=== PATIENT | female | born 1945 | race American Indian/Alaskan Native ===

== ENCOUNTER 2017-08-02 07:55 | Day surgery (SDC) | payer MEDICARE ==
[2017-02-02 09:58] VITALS: BMI 30.7
[~2017-08-02 07:55] MED LIST: Bupivacaine HCl 0.25% PF (10 ml) Inj ONE; Iohexol 240 (50 ml) ONE
[2017-08-02 08:44] VITALS: RESP 18; TEMP 97.7; O2SAT 98
[2017-08-02] MEDS ORDERED: Propofol 10 mg/ml Inj (20 ML) ONE (09:55)
[2017-08-02] MEDS ORDERED: Lactated Ringer's 500 ML IV ONE (09:57)
[2017-08-02] MEDS ORDERED: MethylPREDNISolone Depo 40 mg/ml Inj ONE (10:06)
[2017-08-02 10:48] VITALS: BP 135/74; PULSE 81
--- NOTE | 2017-08-02 12:49 | RAD ---
PROCEDURE: Intraoperative Fluoroscopy. HISTORY: RADICULOPATHY FINDINGS: Fluoroscopic assistance was provided. 13.9 seconds fluoroscopy time utilized during this procedure. Radiation dose = 0.21521 mGy-cm
--- NOTE | 2017-08-03 08:35 | OP ---
PROCEDURE DATE: 08/02/17 PREOPERATIVE DIAGNOSES: 1. Lumbar radiculopathy. 2. Lumbar herniated disc. 3. Myalgias. POSTOPERATIVE DIAGNOSES: 1. Lumbar radiculopathy. 2. Lumbar herniated disc. 3. Myalgias. PROCEDURES: 1. Right and left side L4-L5, L5-S1 lumbar selective nerve root block. 2. Epidurogram. 3. Trigger point injections. X-RAY: [id number], Fluoroscopy of the spine. ANESTHESIA: MAC/local. SURGEON: Carolina Tolentino MD COMPLICATIONS: None. BLOOD LOSS: 2 mL. INDICATION: This patient has intractable back and leg pain that is unresponsive to conservative management. The pain is adversely affecting quality of life and activities of daily living. TECHNIQUE: After comprehensive informed consent was obtained, the risks of the procedure explained and questions answered. The patient understands fully the risks are, but not limited to possible bleeding, infection, headache, nervous tissue injury and worsening of their pain. The patient was placed prone on the operating table in a comfortable position. Confirmation of the procedure to be performed was obtained from the patient. The skin overlying the area to be injected was cleaned in a strict sterile fashion using chlorhexidine. Sterile drapes were placed around the area to be injected. Using the C-arm in the anteroposterior view, the levels to be injected were identified under fluoroscope. Then, the C-arm was obliqued in the coronal plane until the facet joint was delineated approximately 25 degrees. The area to be injected was superficially anesthetized with 3 mL of 1% lidocaine using a 27-gauge, 1.25-inch needle. Under fluoroscopic guidance, a 22-gauge, 3.5-inch short bevel needle was advanced and directed toward the tip of the pars. In the lateral view, ideal placement of the needle was obtained with the tip in the cephalodorsal corner of the neural foramen. In the anteroposterior plane and under continuous fluoroscopy, 1 mL of non-ionic, water-soluble contrast (Omnipaque 180) was injected to visualize the nerve root and make sure there was no vascular uptake. After negative aspiration for blood, 1 mL of preservative-free 0.5% Marcaine in 80 mg of Depo-Medrol was slowly injected at each level. The patient experienced no painful paresthesia during the injection. Epidurogram: The patient underwent transforaminal epidural steroid injection today. The epidural was observed at the level of L4-L5 under AP and lateral fluoroscopic guidance. A 2 mL of Omnipaque 200 contrast was injected that evenly spread from level L3 to S1 level with posterior-anterior dye spread bilaterally at level of L4-L5 and L5-S1. There appeared to be a moderate degree spondylosis at level of L4-L5 and moderate degree of spondylosis at the level of L5-S1 with disc protrusion at the level of L4-L5. The intervertebral disc height at the level of L4-L5 was slightly less than normal and intervertebral disc height at the level of L5-S1 was well maintained. The neural foramen appeared to be patent. Good epidural dye containment from L3-S1 with intervertebral disc protrusion at the level of L4-L5, maintaining less than normal intervertebral disc height at level L4-L5. Spondylosis noted at the level of L4 through S1. Copies of the images are on file. Trigger Point Injections: A 27-gauge needle was used to inject trigger point areas in paralumbar muscles, parathoracic muscles, and upper gluteal muscles. Needle was redirected to sciatic nerve branches. Total volume of 10 mL of 0.25% Marcaine. Intermittent aspiration was done throughout with no heme or CSF aspirated throughout. Patient tolerated procedure well. DISPOSITION: Patient was taken to the recovery room in stable condition. Patient was given instructions to follow up in two weeks and was discharged in stable condition. No events or complications. Carolina Tolentino MD
== END 2017-08-02 10:55 | disposition home or self-care (01) ==
LOC: C.SDS 07:55
PROVIDERS: ATTEND Anesthesiology Pain Medicine
DX: M47.817 Spondylosis without myelopathy or radiculopathy, lumbosacral region (principal); M54.16 Radiculopathy, lumbar region; M51.36 Other intervertebral disc degeneration, lumbar region
CPT/HCPCS: 20552; 62323; 82948; J1030; J2704; J7120; Q9966

== ENCOUNTER 2017-10-12 18:24 | Emergency (ER) | payer MEDICARE ==
[2017-10-12 18:24] VITALS: BMI 30.7
--- NOTE | 2017-10-12 21:06 | C.PDOC ---
History Of Present Illness 72 y/o F c PMHx recent R hip replacement p/w fall 1 week ago. Patient states she was moving quickly and bore weight on the wrong leg and fell. She struck her head. She states she didn't have pain initially but over the week, began having worsening pain in the head, neck, R hip, R knee, and R ankle. Denies vomiting, LOC, dyspnea. Time Seen by Provider: 10/12/17 20:11 Chief Complaint (Nursing): Hip Pain Past Medical History Vital Signs: Last Vital Signs Temp 98.7 F 10/12/17 19:44 Pulse 103 H 10/12/17 19:44 Resp 16 10/12/17 19:44 BP 153/87 H 10/12/17 19:44 Pulse Ox 97 10/12/17 22:55 - Medical History PMH: Anemia, Anxiety, Arthritis, Depression, Fractures (rt ankle), Gastritis, HTN, Hypercholesterolemia, Hypothyroidism, Peripheral Edema, Rheumatoid Arthritis, TIA Denies: HIV, Chronic Kidney Disease Surgical History: Endoscopy, Tonsillectomy - [facility] Procedures BONE GRAFT-TIBIA/FIBULA (05/21/15) COMPUTER ASSISTED PROCEDURE OF LOWER EXTREMITY (12/09/15) DEBRIDEMENT OF NAIL, NAIL BED OR NAIL FOLD (05/24/15) EXCISION OF SMALL INTESTINE, ENDO, DIAGN (01/23/16) GAIT TRAINING/AMBULAT TREATMENT USING ASSIST EQUIPMENT (12/09/15) GAIT TRAINING/FUNCTIONAL AMBULATION TREATMENT (07/22/16) GROOMING/PERSONAL HYGIENE TREATMENT (07/04/16) GROUP PSYCHOTHERAPY (07/22/16) HOME MANAGEMENT TREATMENT (07/22/16) INDIVIDUAL PSYCHOTHERAPY, INTERPERSONAL (07/22/16) INSPECTION OF LOWER INTESTINAL TRACT, ENDO (01/23/16) INTRODUCE REGIONAL ANESTH IN PERIPH NRV, PLEXI, PERC (12/09/15) LOC EXC LES TIBIA/FIBULA (05/21/15) OCCUPATIONAL THERAPY (05/24/15) OP RED-INT FIX TIB/FIBUL (01/13/15) OTH ARTHROTOMY-ANKLE (01/13/15) OTH ARTHROTOMY-KNEE (05/21/15) PACKED CELL TRANSFUSION (05/24/15) PHYSICAL THERAPY NEC (05/24/15) PSYCHOSOCIAL SKILLS TREATMENT (07/08/16) REPLACE OF L KNEE JT WITH SYNTH SUB, CEMENT, OPEN APPROACH (12/09/15) REPLACE R HIP JT W CERAMIC ON POLY, UNCEMENT, OPEN (07/04/16) THERAPEUTIC EXERCISE TREATMENT OF MUSCULOSK WHOLE (07/08/16) TOTAL KNEE REPLACEMENT (05/21/15) TRANSFER TRAINING TREATMENT (07/08/16) TRANSFUSE NONAUT RED BLOOD CELLS IN PERIPH ART, PERC (07/04/16) TRANSFUSE NONAUT RED BLOOD CELLS IN PERIPH VEIN, PERC (12/09/15) Family History: States: No Known Family Hx - Social History Hx Tobacco Use: No Hx Alcohol Use: No Hx Substance Use: No - Immunization History Hx Tetanus Toxoid Vaccination: No Hx Influenza Vaccination: Yes Hx Pneumococcal Vaccination: No Review Of Systems Except As Marked, All Systems Reviewed And Found Negative. Constitutional: Negative for: Fever Cardiovascular: Negative for: Chest Pain Physical Exam - Physical Exam Additional Physical Exam Comments: Constitutional: No acute distress. Head: Normocephalic. Atraumatic. Eyes: PERRL. EOMI. ENT: Moist mucous membranes. Neck: Supple. No midline tenderness. Cardiovascular: Regular rate. Radial pulses 2+ bilaterally. Chest: No tenderness. Respiratory: Clear to auscultation bilaterally. GI: Soft. Nontender. Back: No CVA tenderness. No midline tenderness. Musculoskeletal: Tenderness of R hip, knee, and ankle with FROM. No obvious deformity. Skin: No rash. Neurologic: Alert, no focal deficit. ED Course And Treatment O2 Sat by Pulse Oximetry: 97 Medical Decision Making Medical Decision Making: Toradol for pain. Will send for imaging to rule out further trauma. Head CT FINDINGS: Brain: Minimal atrophy. No intracranial hemorrhage. No mass. Calcifications of basal ganglia and cerebellum. Multiple scattered foci of decreased attenuation within periventricular/subcortical white matter. Probable chronic lacunar infarcts within basal ganglia. No edema. Ventricles: Unremarkable. No ventriculomegaly. Bones/joints: No acute fracture. Soft tissues: Unremarkable. Vasculature: Atherosclerotic disease of intracranial arteries. Sinuses: No acute sinusitis. Mastoid air cells: No mastoid effusion. Orbits: Unremarkable as visualized. Cervical spine CT IMPRESSION: 1. No fracture. 2. Incidental/non-acute findings are described above. XR knee IMPRESSION: 1. No fracture. XR Ankle IMPRESSION: 1. No fracture. XR Hip IMPRESSION: 1. No fracture. 2. If hip pain persists, consider MRI to exclude occult fracture/internal derangement. 3. Incidental/non-acute findings are described above. Will discharge home, f/u PMD, return to ED for worsening pain, numbness, weakness, or any other problem. Patient says medication worked well, will prescribe ibuprofen with pepcid. Disposition - Disposition Disposition: HOME/ ROUTINE Disposition Time: 22:59 Condition: STABLE Prescriptions: Famotidine [Pepcid] 1 tab PO BID #14 tab Ibuprofen [Motrin] 1 tab PO Q6 #30 tab Instructions: Fall Prevention for Older Adults (ED) Forms: [facility] (Macedonian) - Clinical Impression Clinical Impression: Hip pain
--- NOTE | 2017-10-12 22:29 | CT ---
EXAM: CT Head Without Intravenous Contrast CLINICAL HISTORY: 72 years old, female; Injury or trauma; Fall; Initial encounter TECHNIQUE: Axial computed tomography images of the head/brain without intravenous contrast. All CT scans at this facility use one or more dose reduction techniques, viz.: automated exposure control; ma/kV adjustment per patient size (including targeted exams where dose is matched to indication; i.e. head); or iterative reconstruction technique. Coronal and sagittal reformatted images were created and reviewed. COMPARISON: No relevant prior studies available. FINDINGS: Brain: Minimal atrophy. No intracranial hemorrhage. No mass. Calcifications of basal ganglia and cerebellum. Multiple scattered foci of decreased attenuation within periventricular/subcortical white matter. Probable chronic lacunar infarcts within basal ganglia. No edema. Ventricles: Unremarkable. No ventriculomegaly. Bones/joints: No acute fracture. Soft tissues: Unremarkable. Vasculature: Atherosclerotic disease of intracranial arteries. Sinuses: No acute sinusitis. Mastoid air cells: No mastoid effusion. Orbits: Unremarkable as visualized. IMPRESSION: 1. No intracranial hemorrhage. 2. Nonspecific white matter changes. 3. Incidental/non-acute findings are described above.
--- NOTE | 2017-10-12 22:34 | CT ---
EXAM: CT Cervical Spine Without Intravenous Contrast CLINICAL HISTORY: 72 years old, female; Pain; Neck pain; Additional info: Fall TECHNIQUE: Axial computed tomography images of the cervical spine without intravenous contrast. All CT scans at this facility use one or more dose reduction techniques, viz.: automated exposure control; ma/kV adjustment per patient size (including targeted exams where dose is matched to indication; i.e. head); or iterative reconstruction technique. Coronal and sagittal reformatted images were created and reviewed. COMPARISON: No relevant prior studies available. FINDINGS: Vertebrae: No acute fracture. Straightening of cervical spine. Discs/spinal canal/neural foramina: Severe degenerative disc disease within mid cervical spine. [id number] degenerative disc disease within lower cervical spine. Disc herniations within mid and lower cervical spine, suboptimally evaluated. Mild indentation thecal sac/cord mid cervical spine. Mild indentation thecal sac/cord lower cervical spine. Neuroforaminal narrowing with mid cervical spine. Soft tissues: Unremarkable. Vasculature: Atherosclerotic disease of visualized arteries. Thyroid: Subcentimeter cyst or nodule within the left lobe. Lung apices: Minimal apical scarring. IMPRESSION: 1. No fracture. 2. Incidental/non-acute findings are described above.
[2017-10-12 22:50] VITALS: TEMP 98.7
[2017-10-12 23:18] VITALS: BP 148/78; PULSE 82; RESP 19; O2SAT 98
--- NOTE | 2017-10-13 11:27 | RAD ---
PROCEDURE: Right Ankle Radiographs. HISTORY: fall, ankle pain COMPARISON: 10/16/2014 FINDINGS: BONES: No acute fractures. No evidence of orthopedic hardware failure. Plantar and Achilles Tendon insertion calcaneal spurs. JOINTS: Normal. No osteoarthritis. Ankle mortise maintained. Talar dome intact SOFT TISSUES: Normal. OTHER FINDINGS: None. IMPRESSION: No acute findings related to/accounting for the clinical presentation. No significant interval change compared to the prior examination(s).
--- NOTE | 2017-10-13 11:29 | RAD ---
PROCEDURE: Right Knee Radiographs. HISTORY: fall, knee pain COMPARISON: None. FINDINGS: BONES: Satisfactory position alignment of components right ASH without evidence of loosening. JOINTS: Normal. No osteoarthritis. JOINT EFFUSION: None. OTHER FINDINGS: None. IMPRESSION: No acute findings related to/accounting for the clinical presentation.
--- NOTE | 2017-10-13 11:32 | RAD ---
PROCEDURE: Posttraumatic right hip pain HISTORY: fall, hip pain COMPARISON: None TECHNIQUE: Standard protocol for this study/examination. FINDINGS: Satisfactory position alignment of components right bipolar hip prosthesis. No evidence of subluxation, dislocation or mechanical loosening. Intact pelvic ring. IMPRESSION: No acute findings related to/accounting for the clinical presentation.
== END 2017-10-12 23:17 | disposition home or self-care (01) ==
LOC: C.ER 18:24
DX: M25.551 Pain in right hip (principal); Z96.641 Presence of right artificial hip joint
CPT/HCPCS: 70450; 72125; 73502; 73562; 73610; 96372; 99283; J1885

== ENCOUNTER 2017-12-14 13:24 | Inpatient (IN) | payer MEDICARE ==
[2017-12-14 13:25] VITALS: BMI 32.4
--- NOTE | 2017-12-14 13:59 | C.PDOC ---
History Of Present Illness 72 yo female, hx of htn, hld, depression, presents with cp, shoulder pain, back pain, throat pain x 1 week. pt describes left sided chest tightness. no feever, no trauma. no cough, no n/v/d, no other complaints Time Seen by Provider: 12/14/17 13:27 Chief Complaint (Nursing): Chest Pain Past Medical History Reviewed: Historical Data, Nursing Documentation, Vital Signs Vital Signs: Last Vital Signs Temp 97.3 F L 12/15/17 15:32 Pulse 65 12/15/17 15:32 Resp 18 12/15/17 15:32 BP 110/69 12/15/17 15:32 Pulse Ox 100 12/15/17 15:58 - Medical History PMH: Anemia, Anxiety, Arthritis, Depression, Fractures (rt ankle), Gastritis, HTN, Hypercholesterolemia, Hypothyroidism, Peripheral Edema, Rheumatoid Arthritis, TIA Denies: HIV, Chronic Kidney Disease Surgical History: Endoscopy, Tonsillectomy - [facility] Procedures BONE GRAFT-TIBIA/FIBULA (05/21/15) COMPUTER ASSISTED PROCEDURE OF LOWER EXTREMITY (12/09/15) DEBRIDEMENT OF NAIL, NAIL BED OR NAIL FOLD (05/24/15) EXCISION OF SMALL INTESTINE, ENDO, DIAGN (01/23/16) GAIT TRAINING/AMBULAT TREATMENT USING ASSIST EQUIPMENT (12/09/15) GAIT TRAINING/FUNCTIONAL AMBULATION TREATMENT (07/22/16) GROOMING/PERSONAL HYGIENE TREATMENT (07/04/16) GROUP PSYCHOTHERAPY (07/22/16) HOME MANAGEMENT TREATMENT (07/22/16) INDIVIDUAL PSYCHOTHERAPY, INTERPERSONAL (07/22/16) INSPECTION OF LOWER INTESTINAL TRACT, ENDO (01/23/16) INTRODUCE REGIONAL ANESTH IN PERIPH NRV, PLEXI, PERC (12/09/15) LOC EXC LES TIBIA/FIBULA (05/21/15) OCCUPATIONAL THERAPY (05/24/15) OP RED-INT FIX TIB/FIBUL (01/13/15) OTH ARTHROTOMY-ANKLE (01/13/15) OTH ARTHROTOMY-KNEE (05/21/15) PACKED CELL TRANSFUSION (05/24/15) PHYSICAL THERAPY NEC (05/24/15) PSYCHOSOCIAL SKILLS TREATMENT (07/08/16) REPLACE OF L KNEE JT WITH SYNTH SUB, CEMENT, OPEN APPROACH (12/09/15) REPLACE R HIP JT W CERAMIC ON POLY, UNCEMENT, OPEN (07/04/16) THERAPEUTIC EXERCISE TREATMENT OF MUSCULOSK WHOLE (07/08/16) TOTAL KNEE REPLACEMENT (05/21/15) TRANSFER TRAINING TREATMENT (07/08/16) TRANSFUSE NONAUT RED BLOOD CELLS IN PERIPH ART, PERC (07/04/16) TRANSFUSE NONAUT RED BLOOD CELLS IN PERIPH VEIN, PERC (12/09/15) Family History: States: Unknown Family Hx - Social History Hx Tobacco Use: No Hx Alcohol Use: No Hx Substance Use: No - Immunization History Hx Tetanus Toxoid Vaccination: No Hx Influenza Vaccination: Yes Hx Pneumococcal Vaccination: No Review Of Systems ENT: Positive for: Throat Pain Cardiovascular: Positive for: Chest Pain Musculoskeletal: Positive for: Shoulder Pain Physical Exam - Physical Exam Appears: Well, No Acute Distress Skin: Normal Color, Warm, Dry Eye(s): bilateral: Normal Inspection, PERRL, EOMI Nose: Normal Throat: Erythema, No Exudate Neck: Normal Cardiovascular: Rhythm Regular Respiratory: Normal Breath Sounds Gastrointestinal/Abdominal: Normal Exam Back: Normal Inspection Extremity: Normal ROM ED Course And Treatment - Laboratory Results Result Diagrams: 12/14/17 14:11 12/14/17 14:11 O2 Sat by Pulse Oximetry: 100 Medical Decision Making Medical Decision Making: cp r/o acs- labs imaging pending case discussed with pmd dr gonsales, states pt with recent stress, but unsure results. specifically request pt to be admitted to dr jarrett service. Disposition - Disposition Disposition: HOSPITALIZED Disposition Time: 03:00 Condition: FAIR - Clinical Impression Clinical Impression: Chest pain Decision To Admit - Pt Status Changed To: Hospital Disposition Of: Observation - . Bed Request Type: Telemetry Admitting Physician: Xiomy Law Patient Diagnosis: Chest pain
[2017-12-14 14:16] LABS: BASO % 0.7 % (0.0-2.0); EOS % 0.4 % (0.0-4.0); HEMOGLOBIN 12.7 g/dL (11.0-16.0); LYMPH # 1.2 K/uL (1.0-4.3); LYMPH % 29.9 % (20.0-40.0); MEAN CELL VOLUME 90.8 fL (81.0-99.0); MEAN CORPUSCULAR HEMOGLOBIN 30.1 pg (27.0-31.0); MEAN CORPUSCULAR HGB CONC 33.2 g/dL (33.0-37.0); MEAN PLATELET VOLUME 8.9 fL (7.2-11.7); MONO # 0.3 K/uL (0.0-0.8); MONO % 6.5 % (0.0-10.0); NEUT # 2.4 K/uL (1.8-7.0); NEUT % 62.5 % (50.0-75.0); RBC 4.22 Mil/uL (3.80-5.20); RED CELL DISTRIBUTION WIDTH 13.3 % (11.5-14.5); WHITE BLOOD COUNT 3.9 K/uL (4.8-10.8)
[2017-12-14 14:26] LABS: PROTHROMBIN TIME 10.9 SECONDS (9.7-12.2)
[2017-12-14 14:38] LABS: ALB/GLOB RATIO 1.3 (1.0-2.1); ALBUMIN 4.4 g/dL (3.5-5.0); ALT/SGPT 16 U/L (9-52); AST/SGOT 22 U/L (14-36); BLOOD UREA NITROGEN 17 mg/dL (7-17); CALCIUM 9.3 mg/dl (8.6-10.4); GFR AFRICAN-AMERICAN 49; GFR NON-AFRICAN AMERICAN 40
--- NOTE | 2017-12-14 15:50 | RAD ---
HISTORY: chest pain COMPARISON: Chest x-ray 01/21/2016 TECHNIQUE: Chest PA and lateral FINDINGS: LUNGS: No focal consolidation is seen. PLEURA: No pleural effusion is identified. CARDIOVASCULAR: Heart size is within normal limits. OSSEOUS STRUCTURES: Degenerative changes noted of the spine. VISUALIZED UPPER ABDOMEN: Unremarkable. OTHER FINDINGS: None. IMPRESSION: No acute cardiopulmonary process seen.
--- NOTE | 2017-12-14 16:04 | RAD ---
PROCEDURE: Radiographs of the Left Shoulder HISTORY: pain COMPARISON: None FINDINGS: BONES: No fracture identified. JOINTS: Moderate to severe degenerative changes of the glenohumeral joint with severe joint space narrowing and inferior osteophyte of the humerus. Acromioclavicular joint is unremarkable. SOFT TISSUES: Unremarkable OTHER FINDINGS: Degenerative changes noted of the spine. Visualized lung kim are clear. IMPRESSION: No fracture or dislocation identified. Osteoarthritic changes left shoulder.
--- NOTE | 2017-12-14 18:07 | CP.PCM.HP ---
History of Present Illness - History of Present Illness History of Present Illness: 71-year-old female with past medical history of hypertension, hyperlipidemia, anxiety, depression presents with complaint of chest pain. Patient also admits being depressed and had recently seen her psychiatrist who wanted to adjust her medications. Patient denies any fever, chills, night sweats, cough, phlegm, abdominal pain, nausea vomiting, diarrhea, headaches, abdominal pain or any urinary symptoms. Present on Admission - Present on Admission Any Indicators Present on Admission: No History of DVT/PE: No History of Uncontrolled Diabetes: No Urinary Catheter: No Decubitus Ulcer Present: No Review of Systems - Review of Systems All systems: reviewed and no additional remarkable complaints except (As mentioned in HPI) Past Patient History - Infectious Disease Hx of Infectious Diseases: None - Tetanus Immunizations Tetanus Immunization: Unknown - Past Medical History & Family History Past Medical History?: Yes - Past Social History Smoking Status: Never Smoked - CARDIAC Hx Hypercholesterolemia: Yes Hx Hypertension: Yes Hx Peripheral Edema: Yes - PULMONARY Hx Respiratory Disorders: No - NEUROLOGICAL Hx Transient Ischemic Attacks (TIA): Yes - HEENT Hx HEENT Problems: Yes Hx Cataracts: Yes - RENAL Hx Chronic Kidney Disease: No - ENDOCRINE/METABOLIC Hx Hypothyroidism: Yes - HEMATOLOGICAL/ONCOLOGICAL Hx Anemia: Yes Hx Human Immunodeficiency Virus (HIV): No - INTEGUMENTARY Hx Dermatological Problems: No - MUSCULOSKELETAL/RHEUMATOLOGICAL Hx Arthritis: Yes Hx Fractures: Yes (rt ankle) Hx Rheumatoid Arthritis: Yes - GASTROINTESTINAL Hx Gastritis: Yes - GENITOURINARY/GYNECOLOGICAL Hx Genitourinary Disorders: No - PSYCHIATRIC Hx Anxiety: Yes Hx Depression: Yes Hx Substance Use: No - SURGICAL HISTORY Hx Tonsillectomy: Yes - ANESTHESIA Hx Anesthesia: Yes Hx Anesthesia Reactions: No Hx Malignant Hyperthermia: No Meds Home Medications: Home Medication List Medication Instructions Recorded Confirmed Type Aspirin [Aspirin Chewable] 81 mg PO DAILY #30 chew 12/20/17 Rx Lisinopril [Zestril] 40 mg PO DAILY #30 tab 12/20/17 Rx Mirtazapine [Remeron] 45 mg PO HS #30 tablet 12/20/17 Rx Ondansetron ODT [Zofran ODT] 4 mg PO Q8H PRN #21 odt 12/20/17 Rx Simvastatin 5 mg PO DAILY #30 tablet 12/20/17 Rx Venlafaxine [Effexor XR] 75 mg PO DAILY #30 cer 12/20/17 Rx Zolpidem [Ambien] 5 mg PO HS #30 tab 12/20/17 Rx amLODIPine [Norvasc] 10 mg PO DAILY #30 tab 12/20/17 Rx hydroCHLOROthiazide [Hydrodiuril] 25 mg PO DAILY #30 tab 12/20/17 Rx Allergies/Adverse Reactions: Allergies Allergy/AdvReac Type Severity Reaction Status Date / Time No Known Allergies Allergy Verified 12/14/17 13:47 Physical Exam - Head Exam Head Exam: NORMAL INSPECTION - Eye Exam Eye Exam: Normal appearance - ENT Exam ENT Exam: Mucous Membranes Moist - Respiratory Exam Respiratory Exam: Clear to Auscultation Bilateral - Cardiovascular Exam Cardiovascular Exam: REGULAR RHYTHM, +S1, +S2 - GI/Abdominal Exam GI & Abdominal Exam: Normal Bowel Sounds - Extremities Exam Extremities exam: Positive for: normal inspection - Neurological Exam Neurological exam: Alert, Oriented x3 - Psychiatric Exam Psychiatric exam: Depressed Results - Vital Signs Recent Vital Signs: Last Vital Signs Temp 98.7 F 12/14/17 17:14 Pulse 68 12/14/17 17:14 Resp 16 12/14/17 17:14 BP 132/79 12/14/17 17:14 Pulse Ox 100 12/14/17 17:14 - Labs Result Diagrams: 12/18/17 13:55 12/18/17 13:55 Labs: Laboratory Results - last 24 hr 12/14/17 12/14/17 12/14/17 14:11 14:11 14:11 WBC 3.9 L D RBC 4.22 Hgb 12.7 D Hct 38.3 MCV 90.8 D MCH 30.1 MCHC 33.2 RDW 13.3 Plt Count 266 MPV 8.9 Neut % (Auto) 62.5 Lymph % (Auto) 29.9 Prentiss % (Auto) 6.5 Eos % (Auto) 0.4 Baso % (Auto) 0.7 Neut # (Auto) 2.4 Lymph # (Auto) 1.2 Prentiss # (Auto) 0.3 Eos # (Auto) 0.0 Baso # (Auto) 0.0 PT 10.9 INR 1.0 APTT 32 Sodium 139 Potassium 4.2 Chloride 99 Carbon Dioxide 24 Anion Gap 19 BUN 17 Creatinine 1.3 H Est GFR ( Amer) 49 Est GFR (Non-Af Amer) 40 Random Glucose 135 H Calcium 9.3 Total Bilirubin 0.7 AST 22 ALT 16 Alkaline Phosphatase 88 Troponin I < 0.0120 Total Protein 7.8 Albumin 4.4 Globulin 3.4 Albumin/Globulin Ratio 1.3 Assessment & Plan - Assessment and Plan (Free Text) Assessment: Chest pain Major depression Anxiety Hypertension Hyperlipidemia Cardiac enzymes Cardiology consult Serial EKGs BP control Psych consult for major depression DVT/GI prophylaxis for DVT/GI prophylaxis
[2017-12-15 01:40] LABS: CK-MB 0.29 ng/mL (0.0-3.38)
[2017-12-15] MEDS ORDERED: Home Med 1 UNIT (Simvastatin [Simvastatin] 5 MG) PO SCH (10:00)
[2017-12-15] MEDS ORDERED: Venlafaxine 75 mg ER Cap PO SCH (10:00)
--- NOTE | 2017-12-15 10:12 | CARD ---
APPROVED REPORT EKG Measurement Heart [id number] CT [id number] <Conclusion> Normal sinus rhythm Normal ECG
--- NOTE | 2017-12-15 11:27 | CP.PCM.CON ---
History of Present Illness - History of Present Illness History of Present Illness: PGY2 Cardiology Consult Note for Dr. Mckeon This 72 yo female with PMHx of HTN, HLD, GERD, OA, Depression - presents c/o Chest pain, shoulder pain, back pain, throat pain x 1 week. Pt describes left sided chest tightness during admission. Denied fever, trauma, cough, n/v/d, or any additional acute complaints. COLIN panel was negative x3 and EKG showed NSR. Chest Xray was also negative. Case was discussed with PMD who stated pt had recent stress test, but results unkown. Cardiology was consulted 2/2 c/o chest pain and hx of HTN + HLD. Patient seen and examined at bedside this AM. She is resting comfortably. Denies chest pain, palpitations, or SOB. She does c/o L shoulder discomfort with movement. Denies any additional acute complaints. PMD: Dr Carvajal PMHx: HTN, HLD, GERD, OA, Depression PSHx: L TKR (12/12/15), R TKR(04/2015), Right Ankle Surgery(01/2015), INESSA - Hysterectomy, Tonsillectomy FHx: Mother - Alzheimer's Disease ; Father - Unknown but at 82 yo SHx: denies tobacco, etoh, ivdu NKDA Meds: See EMR Review of Systems: -Gen: No fever, No chills, No headache, No lethargy, No weakness. -HEENT: No dizziness, No change in vision, No change in hearing, No sore throat , No dysphagia, No nasal congestion, No mucous. -Cardio: No chest pain, No palpitations, No lower extremity edema, No orthopnea. -Resp: No cough, No dyspnea, No hemoptysis, No wheezing, No pain on inspiration. -GI: No abdominal pain, No nausea/vomiting, No diarrhea/constipation, No hematochezia, No hematemesis. -: No dysuria, No urinary freq, No incontinence, No hematuria, No change in urinary stream. -MSK: No back pain, No muscle weakness, +L shoulder pain with mild radiation to L upper chest. -Skin: No itching, No rash, No lesions. -Neuro: No confusion, No numbness, No tingling, No focal weakness, No syncope. -Psych: No anxiety, +depression, No H/I, No S/I, No hallucinations. Past Patient History - Infectious Disease Hx of Infectious Diseases: None - Tetanus Immunizations Tetanus Immunization: Unknown - Past Medical History & Family History Past Medical History?: Yes - Past Social History Smoking Status: Never Smoked - CARDIAC Hx Hypercholesterolemia: Yes Hx Hypertension: Yes Hx Peripheral Edema: Yes - PULMONARY Hx Respiratory Disorders: No - NEUROLOGICAL Hx Transient Ischemic Attacks (TIA): Yes - HEENT Hx HEENT Problems: Yes Hx Cataracts: Yes - RENAL Hx Chronic Kidney Disease: No - ENDOCRINE/METABOLIC Hx Hypothyroidism: Yes - HEMATOLOGICAL/ONCOLOGICAL Hx Anemia: Yes Hx Human Immunodeficiency Virus (HIV): No - INTEGUMENTARY Hx Dermatological Problems: No - MUSCULOSKELETAL/RHEUMATOLOGICAL Hx Arthritis: Yes Hx Fractures: Yes (rt ankle) Hx Rheumatoid Arthritis: Yes - GASTROINTESTINAL Hx Gastritis: Yes - GENITOURINARY/GYNECOLOGICAL Hx Genitourinary Disorders: No - PSYCHIATRIC Hx Anxiety: Yes Hx Depression: Yes Hx Substance Use: No - SURGICAL HISTORY Hx Tonsillectomy: Yes - ANESTHESIA Hx Anesthesia: Yes Hx Anesthesia Reactions: No Hx Malignant Hyperthermia: No Meds Allergies/Adverse Reactions: Allergies Allergy/AdvReac Type Severity Reaction Status Date / Time No Known Allergies Allergy Verified 12/14/17 13:47 - Medications Medications: Current Medications Amlodipine Besylate (Norvasc) 10 mg PO DAILY [facility] Last Admin: 12/15/17 09:37 Dose: Not Given Aspirin (Aspirin Chewable) 81 mg PO DAILY [facility] Last Admin: 12/15/17 09:35 Dose: 81 mg Heparin Sodium (Porcine) (Heparin) 5,000 units SC Q12 [facility] Last Admin: 12/15/17 09:37 Dose: 5,000 units Hydrochlorothiazide (Hydrodiuril) 25 mg PO DAILY [facility] Last Admin: 12/15/17 09:36 Dose: 25 mg Lisinopril (Zestril) 40 mg PO DAILY [facility] Last Admin: 12/15/17 09:37 Dose: Not Given Lorazepam (Ativan) 1 mg PO Q6H PRN PRN Reason: Anxiety Ondansetron HCl (Zofran Odt) 4 mg PO Q8H PRN PRN Reason: Nausea/Vomiting Last Admin: 12/15/17 09:35 Dose: 4 mg Pneumococcal Polyvalent Vaccine (Pneumovax 23 Vaccine) 0.5 ml IM .ONCE ONE Stop: 12/16/17 10:01 Rosuvastatin Calcium (Crestor) 10 mg PO [facility] Last Admin: 12/14/17 22:37 Dose: 10 mg Venlafaxine HCl (Effexor) 75 mg PO DAILY [facility] Last Admin: 12/15/17 09:36 Dose: 75 mg Zolpidem Tartrate (Ambien) 5 mg PO [facility] Last Admin: 12/14/17 22:37 Dose: 5 mg Physical Exam - Constitutional Appears: Non-toxic, No Acute Distress - Head Exam Head Exam: ATRAUMATIC, NORMAL INSPECTION - Eye Exam Eye Exam: EOMI, Normal appearance - ENT Exam ENT Exam: Mucous Membranes Moist Additional comments: throat erythematous - Neck Exam Neck exam: Positive for: Full Rom - Respiratory Exam Respiratory Exam: Clear to Auscultation Bilateral, NORMAL BREATHING PATTERN. absent: Wheezes, Respiratory Distress - Cardiovascular Exam Cardiovascular Exam: REGULAR RHYTHM, +S1, +S2. absent: JVD, Rubs, Systolic Murmur - GI/Abdominal Exam GI & Abdominal Exam: Normal Bowel Sounds, Soft. absent: Tenderness - Back Exam Back exam: NORMAL INSPECTION. absent: CVA tenderness (L), CVA tenderness (R) - Neurological Exam Neurological exam: Alert, CN II-XII Intact - Psychiatric Exam Psychiatric exam: Depressed, Normal Affect - Skin Skin Exam: Dry, Intact, Normal Color, Warm Results - Vital Signs Recent Vital Signs: Last Vital Signs Temp 97.4 F L 12/15/17 07:30 Pulse 74 12/15/17 07:30 Resp 20 12/15/17 07:30 BP 100/66 12/15/17 07:30 Pulse Ox 97 12/15/17 07:30 - Labs Result Diagrams: 12/14/17 14:11 12/14/17 14:11 Labs: Laboratory Results - last 24 hr 12/14/17 12/14/17 12/14/17 14:11 14:11 14:11 WBC 3.9 L D RBC 4.22 Hgb 12.7 D Hct 38.3 MCV 90.8 D MCH 30.1 MCHC 33.2 RDW 13.3 Plt Count 266 MPV 8.9 Neut % (Auto) 62.5 Lymph % (Auto) 29.9 [place] % (Auto) 6.5 Eos % (Auto) 0.4 Baso % (Auto) 0.7 Neut # (Auto) 2.4 Lymph # (Auto) 1.2 [place] # (Auto) 0.3 Eos # (Auto) 0.0 Baso # (Auto) 0.0 PT 10.9 INR 1.0 APTT 32 Sodium 139 Potassium 4.2 Chloride 99 Carbon Dioxide 24 Anion Gap 19 BUN 17 Creatinine 1.3 H Est GFR ( Amer) 49 Est GFR (Non-Af Amer) 40 Random Glucose 135 H Calcium 9.3 Total Bilirubin 0.7 AST 22 ALT 16 Alkaline Phosphatase 88 Total Creatine Kinase CK-MB (Mass) Troponin I < 0.0120 Total Protein 7.8 Albumin 4.4 Globulin 3.4 Albumin/Globulin Ratio 1.3 12/14/17 12/15/17 19:43 01:00 WBC RBC Hgb Hct MCV MCH MCHC RDW Plt Count MPV Neut % (Auto) Lymph % (Auto) [place] % (Auto) Eos % (Auto) Baso % (Auto) Neut # (Auto) Lymph # (Auto) [place] # (Auto) Eos # (Auto) Baso # (Auto) PT INR APTT Sodium Potassium Chloride Carbon Dioxide Anion Gap BUN Creatinine Est GFR ( Amer) Est GFR (Non-Af Amer) Random Glucose Calcium Total Bilirubin AST ALT Alkaline Phosphatase Total Creatine Kinase 47 CK-MB (Mass) 0.29 Troponin I < 0.0120 < 0.0120 Total Protein Albumin Globulin Albumin/Globulin Ratio Assessment & Plan - Assessment and Plan (Free Text) Assessment: Chest Pain 12/15: Pt denies chest pain today, will continue to monitor. -COLIN negative x3 -EKG with NSR -CXR negative Hypertension -BP 100/66, HR 74. -Continue Norvasc, ASA 81, Lisinopril HLD -Continue crestor Case discussed with Dr. Mckeon, Jose Sheth, PGY2 - Date & Time Date: 12/15/17 Time: 09:00
--- NOTE | 2017-12-15 17:28 | CP.PCM.CON ---
History of Present Illness - History of Present Illness History of Present Illness: The pt is a 72 year old woman with HTN, HLD, GERD, OA, Depression , who has had chest pain for about ytwo weeks. Yesterday was especially bad, lasted all day and night pt could not lie on her left sided or turn. Pt also had pain radiating to the shoulder and throat. pt had a stress test two weeks ago, and was awaiting results. No known CAD. Review of Systems - Review of Systems All systems: reviewed and no additional remarkable complaints except (arthritis , and as above.) Past Patient History - Infectious Disease Hx of Infectious Diseases: None - Tetanus Immunizations Tetanus Immunization: Unknown - Past Medical History & Family History Past Medical History?: Yes - Past Social History Smoking Status: Never Smoked - CARDIAC Hx Hypercholesterolemia: Yes Hx Hypertension: Yes Hx Peripheral Edema: Yes - PULMONARY Hx Respiratory Disorders: No - NEUROLOGICAL Hx Transient Ischemic Attacks (TIA): Yes - HEENT Hx HEENT Problems: Yes Hx Cataracts: Yes - RENAL Hx Chronic Kidney Disease: No - ENDOCRINE/METABOLIC Hx Hypothyroidism: Yes - HEMATOLOGICAL/ONCOLOGICAL Hx Anemia: Yes Hx Human Immunodeficiency Virus (HIV): No - INTEGUMENTARY Hx Dermatological Problems: No - MUSCULOSKELETAL/RHEUMATOLOGICAL Hx Arthritis: Yes Hx Fractures: Yes (rt ankle) Hx Rheumatoid Arthritis: Yes - GASTROINTESTINAL Hx Gastritis: Yes - GENITOURINARY/GYNECOLOGICAL Hx Genitourinary Disorders: No - PSYCHIATRIC Hx Anxiety: Yes Hx Depression: Yes Hx Substance Use: No - SURGICAL HISTORY Hx Tonsillectomy: Yes - ANESTHESIA Hx Anesthesia: Yes Hx Anesthesia Reactions: No Hx Malignant Hyperthermia: No Meds Allergies/Adverse Reactions: Allergies Allergy/AdvReac Type Severity Reaction Status Date / Time No Known Allergies Allergy Verified 12/14/17 13:47 - Medications Medications: Current Medications Amlodipine Besylate (Norvasc) 10 mg PO DAILY [facility] Last Admin: 12/15/17 09:37 Dose: Not Given Aspirin (Aspirin Chewable) 81 mg PO DAILY [facility] Last Admin: 12/15/17 09:35 Dose: 81 mg Heparin Sodium (Porcine) (Heparin) 5,000 units SC Q12 [facility] Last Admin: 12/15/17 09:37 Dose: 5,000 units Hydrochlorothiazide (Hydrodiuril) 25 mg PO DAILY [facility] Last Admin: 12/15/17 09:36 Dose: 25 mg Lisinopril (Zestril) 40 mg PO DAILY [facility] Last Admin: 12/15/17 09:37 Dose: Not Given Lorazepam (Ativan) 1 mg IVP Q6H PRN PRN Reason: Anxiety Ondansetron HCl (Zofran Odt) 4 mg PO Q8H PRN PRN Reason: Nausea/Vomiting Last Admin: 12/15/17 09:35 Dose: 4 mg Pneumococcal Polyvalent Vaccine (Pneumovax 23 Vaccine) 0.5 ml IM .ONCE ONE Stop: 12/16/17 10:01 Rosuvastatin Calcium (Crestor) 10 mg PO [facility] Last Admin: 12/14/17 22:37 Dose: 10 mg Venlafaxine HCl (Effexor) 75 mg PO DAILY [facility] Last Admin: 12/15/17 09:36 Dose: 75 mg Zolpidem Tartrate (Ambien) 5 mg PO [facility] Last Admin: 12/14/17 22:37 Dose: 5 mg Physical Exam - Constitutional Appears: Well - Head Exam Head Exam: ATRAUMATIC - Eye Exam Eye Exam: EOMI, PERRL - ENT Exam ENT Exam: Mucous Membranes Moist - Neck Exam Neck exam: Positive for: Full Rom - Respiratory Exam Respiratory Exam: Clear to Auscultation Bilateral - Cardiovascular Exam Cardiovascular Exam: REGULAR RHYTHM - GI/Abdominal Exam GI & Abdominal Exam: Normal Bowel Sounds - Extremities Exam Extremities exam: Positive for: normal inspection - Back Exam Back exam: NORMAL INSPECTION - Psychiatric Exam Psychiatric exam: Normal Mood Results - Vital Signs Recent Vital Signs: Last Vital Signs Temp 97.3 F L 12/15/17 15:32 Pulse 65 12/15/17 15:32 Resp 18 12/15/17 15:32 BP 110/69 12/15/17 15:32 Pulse Ox 100 12/15/17 16:55 - Labs Result Diagrams: 12/14/17 14:11 12/14/17 14:11 Labs: Laboratory Results - last 24 hr 12/14/17 12/15/17 19:43 01:00 Total Creatine Kinase 47 CK-MB (Mass) 0.29 Troponin I < 0.0120 < 0.0120 - EKG Data EKG Interpreted by: Myself EKG shows normal: Sinus rhythm (normal) Assessment & Plan - Assessment and Plan (Free Text) Assessment: 1. The patient has reproducible, non anginal positional chest pain. TNI are normal and ecg normal. I will get the results of her most recent stress test, but based on her current presentation, he near term risk of an acute coronary event is low.
--- NOTE | 2017-12-15 18:40 | CP.PCM.PN ---
Subjective - Date & Time of Evaluation Date of Evaluation: 12/15/17 Time of Evaluation: 18:40 - Subjective Subjective: Patient seen and examined Cardiac enzymes 3 negative Cardiology consult appreciated Objective - Vital Signs/Intake and Output Vital Signs (last 24 hours): Temp Pulse Resp BP Pulse Ox 97.3 F L 65 18 110/69 100 12/15/17 15:32 12/15/17 15:32 12/15/17 15:32 12/15/17 15:32 12/15/17 16:55 - Medications Medications: Current Medications Amlodipine Besylate (Norvasc) 10 mg PO DAILY [facility] Last Admin: 12/15/17 09:37 Dose: Not Given Aspirin (Aspirin Chewable) 81 mg PO DAILY [facility] Last Admin: 12/15/17 09:35 Dose: 81 mg Heparin Sodium (Porcine) (Heparin) 5,000 units SC Q12 [facility] Last Admin: 12/15/17 09:37 Dose: 5,000 units Hydrochlorothiazide (Hydrodiuril) 25 mg PO DAILY [facility] Last Admin: 12/15/17 09:36 Dose: 25 mg Lisinopril (Zestril) 40 mg PO DAILY [facility] Last Admin: 12/15/17 09:37 Dose: Not Given Lorazepam (Ativan) 1 mg IVP Q6H PRN PRN Reason: Anxiety Ondansetron HCl (Zofran Odt) 4 mg PO Q8H PRN PRN Reason: Nausea/Vomiting Last Admin: 12/15/17 09:35 Dose: 4 mg Pneumococcal Polyvalent Vaccine (Pneumovax 23 Vaccine) 0.5 ml IM .ONCE ONE Stop: 12/16/17 10:01 Rosuvastatin Calcium (Crestor) 10 mg PO HS [facility] Last Admin: 12/14/17 22:37 Dose: 10 mg Venlafaxine HCl (Effexor) 75 mg PO DAILY [facility] Last Admin: 12/15/17 09:36 Dose: 75 mg Zolpidem Tartrate (Ambien) 5 mg PO HS [facility] Last Admin: 12/14/17 22:37 Dose: 5 mg - Labs Labs: 12/14/17 14:11 12/14/17 14:11 PT 10.9 SECONDS (9.7-12.2) 12/14/17 14:11 INR 1.0 12/14/17 14:11 APTT 32 SECONDS (21-34) 12/14/17 14:11 - Head Exam Head Exam: NORMAL INSPECTION - Eye Exam Eye Exam: Normal appearance - ENT Exam ENT Exam: Mucous Membranes Moist - Respiratory Exam Respiratory Exam: Clear to Ausculation Bilateral - GI/Abdominal Exam GI & Abdominal Exam: Soft, Normal Bowel Sounds - Extremities Exam Extremities Exam: Normal Inspection - Neurological Exam Neurological Exam: Alert, Awake Assessment and Plan - Assessment and Plan (Free Text) Assessment: Chest pain Major depression Anxiety Hypertension Hyperlipidemia Psych consult appreciated Psych meds being adjusted Hydrochlorothiazide Norvasc Patient denies any suicidal ideations DVT/GI prophylaxis
--- NOTE | 2017-12-15 22:40 | CON ---
DATE: PSYCHIATRIC CONSULTATION CHIEF COMPLAINT AND REASON FOR CONSULTATION: The patient was referred by Dr. Law for evaluation and comanagement of depression and anxiety. The patient is well known to me because the patient seen in my office for depression and anxiety. HISTORY OF PRESENT ILLNESS: This is case of a 72-year-old female with a long history of depression and anxiety. The patient came to the emergency room complaining of chest pain, shoulder pain, throat pain, and difficulty taking care herself. The patient was referred for comanagement that the patient has been complaining of increasing depression and anxiety. The patient has long history of depression and anxiety related to her issues with her , Moi, who was also a patient of [employer], who has advanced Alzheimer's. The patient has been the caregiver of her for many years but the patient is having difficulty keeping her at home due to advanced Alzheimer's. Her has been exhibiting behavior problems at home, unable to follow direction, not doing his ADLs. Plan for the patient was to put her in a care home but the patient is still awaiting for completion of her 's Medicaid; so the patient can be placed in a care home. The patient also had issue with her grandson who is also medically ill. She reports that she stopped taking her medicines. Review of her medications: The patient used to take Effexor and also Klonopin but has not taken them in 2 months and also was taking Ambien only to help her sleep, this was prescribed by her primary care doctor. The patient used to be on antidepressant in the past, she was taking Effexor, and she was taking Remeron and Klonopin but has not taking them. She has history of begin admitted at the [facility] at [place] a few months ago. Today, the patient is complaining of anxiety. She stated she feels like she is dying. She was given Ativan 1 mg and feels much relieved. The patient is to resume taking her medications for her depression and anxiety which she is willing to do so. She is still worried about her who is at home and needs 24-hour care. PAST PSYCHIATRIC HISTORY: A long history of depression and anxiety who underwent previous psych admission in [place]. The patient has no prior suicidal history, has been on antidepressants in the past and anxiolytics. She has history of chronic insomnia. MEDICAL HISTORY: As stated history of fractured right ankle, gastritis, hypertension, hypercholesterolemia, thyroid problems, history of rheumatoid arthritis, TIA. The patient is followed by Dr. Polanco. DRUG AND ALCOHOL HISTORY: Denies any. ALLERGIES: THE PATIENT HAS NO KNOWN ALLERGIES. 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 She lives with her , Moi, they have been for over 40 years but the patient's has advanced Alzheimer's. The patient is the primary caregiver of her . MEDICATIONS: List of current medications include Ambien 5 mg at bedtime, aspirin. The patient was earlier given Klonopin 1 mg every 12 hours, Crestor, Effexor 75 mg daily, HydroDIURIL, Norvasc, Zestril, Zofran. VITAL SIGNS: Temperature is 97.4, pulse rate 74, blood pressure 100/66, respirations 20, oxygen saturation is 97%. REVIEW OF HER LABS: WBC is 3.9, creatinine is 1.3, random glucose is 135, sodium is 139. REVIEW OF SYSTEMS: GENERAL: The patient is alert and oriented x3 but feels weak and depressed, seen in her room. She was asking something for her anxiety. The patient is having panic attack, feeling overwhelmed. SKIN: No diaphoresis. HEENT: No headache. No dizziness. NECK: Supple. RESPIRATORY: No dyspnea. CARDIOVASCULAR: No chest pain. GASTROINTESTINAL: Feeling nauseous, has very poor appetite. EXTREMITIES: Unsteady gait. MUSCULOSKELETAL: Feels week. GENITOURINARY: No dysuria. NEUROLOGIC: Alert and oriented x3 but clinically depressed. She states she has not been sleeping, has not been eating, and feels like rolling up all the time. MENTAL STATUS EXAMINATION: An elderly female, well known to me, oriented x3, somatic, anxious, clinically depressed. Affect is reactive. Speech is spontaneous. Thought process, coherent. Thought content, the patient is having some anxiety attacks feeling overwhelmed about her role of a caregiver of her , Moi, who has advanced Alzheimer's. The patient wants to put her in a care home but the patient is still awaiting with the completion of the Medicaid of her . Stated no psychosis, no suicidal or homicidal ideation. Attention and memory seems to be fair. Insight and judgment are limited. Impulse control is fair at this time. IMPRESSION: History of recurrent depression, anxiety, as well as history of chest pain. PLAN AND RECOMMENDATION: The patient is seen, meds reviewed. The patient is still nauseous and vomiting. We will discontinue the Klonopin. We will continue the Effexor 75 mg daily. The patient has not taken this in 2 months, she stopped her medication and then may have Ativan 1 mg IV x1 now and then we will given Ativan IV one every 6 hours p.r.n. We will continue the Ambien 5 mg p.o. at bedtime for anxiety. The patient can go for subacute rehab; right now, the patient is reluctant to go back to [facility]. The patient is still medically sick at this time but not complaining of chest pain as stated. She had an EKG done that showed normal sinus rhythm and also normal EKG. Her chest pain mostly is related to anxiety and depression. Skinny Lozano MD MTDRody
[2017-12-16] MEDS ORDERED: Pneumococcal 23-Valent Vaccine IM ONE (10:00)
--- NOTE | 2017-12-16 21:01 | PN ---
DATE: SUBJECTIVE: The patient is seen. The patient is still feeling weak and has GI symptoms, but get relieved by the Ativan p.r.n. She also started taking Effexor as well as Ambien. The patient is still sleepy and her appetite is variable. The patient is seen with her daughter. The patient reports that she applied Medicaid for her last June and waiting for the result. The patient is hoping that her will be placed in the intermediate. 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 No loss of job. Currently on Ambien, as well as Effexor and Ativan p.r.n. PHYSICAL EXAMINATION VITAL SIGNS: Temperature 98, heart rate 87, blood pressure 122/73, respirations 20, oxygen saturations 96%. REVIEW OF SYSTEMS: GENERAL: The patient is alert and oriented x3, seen in her room, still feeling weak. The patient is less anxious, but seems depressed. Seen with her daughter. SKIN: No diaphoresis. HEENT: No headache or dizziness. NECK: Supple. RESPIRATORY: No dyspnea. CARDIOVASCULAR: No chest pain. GASTROINTESTINAL: The patient still is feeling nauseous, but no vomiting. She states she has no appetite. EXTREMITIES: The patient is moving extremities. MUSCULOSKELETAL: Feels weak. NEUROLOGIC: Alert and oriented x3. GENITOURINARY: No dysuria. MENTAL STATUS EXAMINATION: Elderly female who looks stated age. She is about 5 feet 5 inches, weighs 195 pounds. The patient is obese. Mood is depressed, anxious, somatic. Thought process, coherent. Thought content, no psychosis. The patient is preoccupied about her , Moi. The patient is hoping that the patient can be placed in the intermediate once her 's Medicaid will be approved. The patient states she will contact Clotilde who is helping her get her 's Medicaid. Attention and memory seems to be fair. Insight and judgement fair. Impulse control is fair. As stated, the patient has no psychosis. No suicidal or homicidal ideation. IMPRESSION: History of recurrent depression, anxiety, history of chest pain, gastroesophageal reflux disease, osteoarthrosis, history of falls, history of delirium, history of hyperlipidemia, history of diabetes. PLAN AND RECOMMENDATIONS: The patient is seen, meds reviewed. Continue present psych meds. Continue treatment plan as outlined. The patient may benefit from subacute rehab as she is feeing very weak. The patient's will need to be placed in a intermediate once the patient's has Medicaid. Skinny Lozano MD JOSEPH
--- NOTE | 2017-12-17 15:10 | CP.PCM.PN ---
Subjective - Date & Time of Evaluation Date of Evaluation: 12/16/17 Time of Evaluation: 17:04 - Subjective Subjective: Patient seen and examined No events overnight Denies suicidal ideation Objective - Vital Signs/Intake and Output Vital Signs (last 24 hours): Temp Pulse Resp BP Pulse Ox 97.7 F 66 20 116/72 98 12/17/17 07:10 12/17/17 07:45 12/17/17 07:10 12/17/17 07:10 12/17/17 07:10 Intake and Output: 12/17/17 12/17/17 06:59 18:59 Intake Total 325 Balance 325 - Medications Medications: Current Medications Amlodipine Besylate (Norvasc) 10 mg PO DAILY [facility] Last Admin: 12/17/17 09:43 Dose: 10 mg Aspirin (Aspirin Chewable) 81 mg PO DAILY [facility] Last Admin: 12/17/17 09:42 Dose: 81 mg Heparin Sodium (Porcine) (Heparin) 5,000 units SC Q12 [facility] Last Admin: 12/17/17 09:42 Dose: 5,000 units Hydrochlorothiazide (Hydrodiuril) 25 mg PO DAILY [facility] Last Admin: 12/17/17 09:42 Dose: 25 mg Lisinopril (Zestril) 40 mg PO DAILY [facility] Last Admin: 12/17/17 09:43 Dose: 40 mg Lorazepam (Ativan) 1 mg IVP Q6H PRN PRN Reason: Anxiety Last Admin: 12/17/17 09:46 Dose: 1 mg Mirtazapine (Remeron) 30 mg PO HS [facility] Mirtazapine (Remeron) 15 mg PO HS [facility] Ondansetron HCl (Zofran Odt) 4 mg PO Q8H PRN PRN Reason: Nausea/Vomiting Last Admin: 12/15/17 09:35 Dose: 4 mg Rosuvastatin Calcium (Crestor) 10 mg PO HS [facility] Last Admin: 12/16/17 21:46 Dose: 10 mg Venlafaxine HCl (Effexor) 75 mg PO DAILY [facility] Last Admin: 12/17/17 09:43 Dose: 75 mg Zolpidem Tartrate (Ambien) 5 mg PO HS [facility] Last Admin: 12/16/17 21:46 Dose: 5 mg - Labs Labs: 12/14/17 14:11 12/14/17 14:11 PT 10.9 SECONDS (9.7-12.2) 12/14/17 14:11 INR 1.0 12/14/17 14:11 APTT 32 SECONDS (21-34) 12/14/17 14:11 - Head Exam Head Exam: NORMAL INSPECTION - Eye Exam Eye Exam: Normal appearance - ENT Exam ENT Exam: Mucous Membranes Moist - Respiratory Exam Respiratory Exam: Clear to Ausculation Bilateral - Cardiovascular Exam Cardiovascular Exam: REGULAR RHYTHM - GI/Abdominal Exam GI & Abdominal Exam: Soft, Normal Bowel Sounds - Neurological Exam Neurological Exam: Alert, Oriented x3 Assessment and Plan - Assessment and Plan (Free Text) Assessment: Chest pain Hypertension Major depression Anxiety Insomnia Hyperlipidemia Patient needs to be evaluated for psych for admission Continue Remeron Hydrochlorothiazide Norvasc Ambien nightly as needed Ativan DVT/GI prophylaxis
--- NOTE | 2017-12-17 15:10 | CP.PCM.PN ---
Subjective - Date & Time of Evaluation Date of Evaluation: 12/17/17 Time of Evaluation: 15:10 - Subjective Subjective: Patient seen and examined No events overnight Objective - Vital Signs/Intake and Output Vital Signs (last 24 hours): Temp Pulse Resp BP Pulse Ox 97.7 F 66 20 116/72 98 12/17/17 07:10 12/17/17 07:45 12/17/17 07:10 12/17/17 07:10 12/17/17 07:10 Intake and Output: 12/17/17 12/17/17 06:59 18:59 Intake Total 325 Balance 325 - Medications Medications: Current Medications Amlodipine Besylate (Norvasc) 10 mg PO DAILY [facility] Last Admin: 12/17/17 09:43 Dose: 10 mg Aspirin (Aspirin Chewable) 81 mg PO DAILY [facility] Last Admin: 12/17/17 09:42 Dose: 81 mg Heparin Sodium (Porcine) (Heparin) 5,000 units SC Q12 [facility] Last Admin: 12/17/17 09:42 Dose: 5,000 units Hydrochlorothiazide (Hydrodiuril) 25 mg PO DAILY [facility] Last Admin: 12/17/17 09:42 Dose: 25 mg Lisinopril (Zestril) 40 mg PO DAILY [facility] Last Admin: 12/17/17 09:43 Dose: 40 mg Lorazepam (Ativan) 1 mg IVP Q6H PRN PRN Reason: Anxiety Last Admin: 12/17/17 09:46 Dose: 1 mg Mirtazapine (Remeron) 30 mg PO HS [facility] Mirtazapine (Remeron) 15 mg PO HS [facility] Ondansetron HCl (Zofran Odt) 4 mg PO Q8H PRN PRN Reason: Nausea/Vomiting Last Admin: 12/15/17 09:35 Dose: 4 mg Rosuvastatin Calcium (Crestor) 10 mg PO HS [facility] Last Admin: 12/16/17 21:46 Dose: 10 mg Venlafaxine HCl (Effexor) 75 mg PO DAILY [facility] Last Admin: 12/17/17 09:43 Dose: 75 mg Zolpidem Tartrate (Ambien) 5 mg PO HS [facility] Last Admin: 12/16/17 21:46 Dose: 5 mg - Labs Labs: 12/14/17 14:11 12/14/17 14:11 PT 10.9 SECONDS (9.7-12.2) 12/14/17 14:11 INR 1.0 12/14/17 14:11 APTT 32 SECONDS (21-34) 12/14/17 14:11 - Head Exam Head Exam: NORMAL INSPECTION - Eye Exam Eye Exam: Normal appearance - ENT Exam ENT Exam: Mucous Membranes Moist - Respiratory Exam Respiratory Exam: Clear to Ausculation Bilateral - Cardiovascular Exam Cardiovascular Exam: REGULAR RHYTHM - GI/Abdominal Exam GI & Abdominal Exam: Soft, Normal Bowel Sounds - Extremities Exam Extremities Exam: Normal Inspection - Neurological Exam Neurological Exam: Alert, Oriented x3 Assessment and Plan - Assessment and Plan (Free Text) Assessment: Chest pain Hypertension Major depression Anxiety Insomnia Hyperlipidemia Patient needs to be evaluated for psych for admission Continue Remeron Hydrochlorothiazide Norvasc Ambien nightly as needed Ativan Discharge home once cleared by psychiatry DVT/GI prophylaxis
--- NOTE | 2017-12-17 20:14 | PN ---
DATE: SUBJECTIVE: The patient is seen. The patient is still feeling anxious at times but gets relieved with the IV Ativan, but the patient continues to have very poor appetite and not sleeping well. In the past, the patient used to take Remeron 45 mg at bedtime for depression in conjunction with Effexor. The patient is asking if she can have her meds changed. I have put her back on Remeron 45 with Effexor 75 and then with her Ativan p.r.n. The patient is reluctant to go for inpatient psych admission as well as subacute rehab. She states that she just wants to go home once she is medically stable. Of course, for chest pain, the patient was seen by Dr. Crane, tuber machine operator, and was cleared cardiac guzman. VITAL SIGNS: Temperature 97.7, pulse rate 66, blood pressure 116/73, respirations 20, oxygen saturation is 98%. REVIEW OF SYSTEMS: GENERAL: The patient is more alert, verbal, still anxious and depressed in her room. The patient states that she has no appetite and she is not sleeping. SKIN: No diaphoresis. HEENT: No headache or dizziness. NECK: Supple. RESPIRATORY: No dyspnea. CARDIOVASCULAR: No chest pain. GASTROINTESTINAL: The patient has very poor appetite. No nausea or vomiting. EXTREMITIES: Gait is steady at times. MUSCULOSKELETAL: Feels weak. NEUROLOGIC: Alert and oriented x3. GENITOURINARY: No dysuria. MENTAL STATUS EXAMINATION: Elderly female looks her stated age, still appears clinically depressed and anxious, oriented x3. Speech is spontaneous. Affect is reactive. Mood is depressed, somatic. Thought process, coherent. Thought content, no overt psychosis. No suicidal or homicidal ideation. Attention and memory seems to be fair. Insight and judgment are fair. Impulse control is fair. IMPRESSION: Recurrent depression and anxiety, chest pain. PLAN AND RECOMMENDATIONS: The patient is seen, meds reviewed. We will continue the Ambien 5 mg at bedtime for insomnia. We will continue the Ativan 1 mg IV q. 4 p.r.n. and then the Effexor 75 mg daily and we will add Remeron 45 mg at bedtime for depression. The patient may need dual antidepressant at this time. She had this combination in the past. We will try to resume it accordingly. The patient once medically stable may go home. The patient does not want subacute rehab or inpatient psych unit admission. Skinny Lozano MD [facility] # [id number]
[2017-12-18 14:01] LABS: BASO % 0.8 % (0.0-2.0); EOS # 0.1 K/uL (0.0-0.7); EOS % 1.4 % (0.0-4.0); HEMOGLOBIN 12.5 g/dL (11.0-16.0); LYMPH # 1.2 K/uL (1.0-4.3); LYMPH % 30.5 % (20.0-40.0); MEAN CELL VOLUME 90.7 fL (81.0-99.0); MEAN CORPUSCULAR HEMOGLOBIN 29.8 pg (27.0-31.0); MEAN CORPUSCULAR HGB CONC 32.8 g/dL (33.0-37.0); MONO # 0.4 K/uL (0.0-0.8); MONO % 10.9 % (0.0-10.0); NEUT # 2.3 K/uL (1.8-7.0); NEUT % 56.4 % (50.0-75.0); RBC 4.19 Mil/uL (3.80-5.20); RED CELL DISTRIBUTION WIDTH 13.8 % (11.5-14.5); WHITE BLOOD COUNT 4.1 K/uL (4.8-10.8)
[2017-12-18 14:13] LABS: CALCIUM 8.6 mg/dl (8.6-10.4)
--- NOTE | 2017-12-18 18:02 | PN ---
DATE: SUBJECTIVE: The patient is seen. The patient slept very well last night with Remeron and Ambien combination. She said she slept through the night. However, she is anxious, depressed, and has poor appetite. The patient is still refusing to go for subacute rehab, but she said she wants to be in the hospital for a few days until she felt much better. She is on Ambien 5 mg at bedtime, Effexor 75 mg daily, and Remeron 45 mg at bedtime. She is tolerating well. The patient has taken these meds in the past. Her appetite is poor. PHYSICAL EXAMINATION: VITAL SIGNS: Temperature is 97.7, pulse rate is 68, blood pressure 111/71, respirations 20, oxygen saturation is 97%. REVIEW OF SYSTEMS: GENERAL: The patient is alert and oriented x3. She still looks depressed and anxious, seen in her room, not in acute respiratory distress. SKIN: No diaphoresis. HEENT: No headache or dizziness. NECK: Supple. RESPIRATORY: No dyspnea. CARDIOVASCULAR: No chest pain. GASTROINTESTINAL: Appetite is poor. No nausea, no vomiting. EXTREMITIES: The patient moves extremities. MUSCULOSKELETAL: The patient still feels weak. NEUROLOGIC: Alert and oriented x3. GENITOURINARY: No urinary problems. No dysuria or hematuria. MENTAL STATUS EXAMINATION: Elderly female, who looks stated age, alert and oriented x3. Mood is still depressed, somatic, anxious. Affect is reactive. Speech is spontaneous. Thought process, coherent. Thought content, still has problems with appetite. The patient was not complaining of chest pain or any respiratory problem, although she reports she has been sleeping very well with the recent change of her psych meds. As stated, no psychosis. No suicidal or homicidal ideation. Attention and memory seem to be fair. Insight and judgment fair. Impulse control is fair. IMPRESSION: History of recurrent depression, anxiety, as well as history of chest pain, gastroesophageal reflux disease, history of hypertension, dyslipidemia. PLAN AND RECOMMENDATIONS: The patient was seen, meds reviewed. Continue present management. We will keep Ambien 5 mg at bedtime as well as Effexor 75 mg daily in the morning for depression, as well as Remeron 45 mg at bedtime for depression. Continue treatment and present plan as outlined. Once the patient is medically stable, she can go home. She can follow up in my office for follow up of her meds. The patient is still preoccupied about her , Moi who has Alzheimer's, but according to her, her two grandchildren are taking care of him while she is in the hospital. The patient's needs to get Medicaid, so he can be placed in the halfway. This is one of the main stressor of the patient causing her depression being the caregiver of her who has Alzheimer's and told he is having some behavioral problems at home. Skinny Lozano MD [facility]
--- NOTE | 2017-12-18 18:43 | CP.PCM.PN ---
Subjective - Date & Time of Evaluation Date of Evaluation: 12/18/17 Time of Evaluation: 18:43 - Subjective Subjective: Patient seen and examined No events overnight Denies chest pain Patient is drowsy but arousable Objective - Vital Signs/Intake and Output Vital Signs (last 24 hours): Temp Pulse Resp BP Pulse Ox 98.3 F 75 19 102/65 97 12/18/17 15:00 12/18/17 15:00 12/18/17 15:00 12/18/17 15:00 12/18/17 15:00 - Medications Medications: Current Medications Amlodipine Besylate (Norvasc) 10 mg PO DAILY [facility] Last Admin: 12/18/17 09:26 Dose: 10 mg Aspirin (Aspirin Chewable) 81 mg PO DAILY [facility] Last Admin: 12/18/17 09:26 Dose: 81 mg Hydrochlorothiazide (Hydrodiuril) 25 mg PO DAILY [facility] Last Admin: 12/18/17 09:26 Dose: 25 mg Lisinopril (Zestril) 40 mg PO DAILY [facility] Last Admin: 12/18/17 09:26 Dose: 40 mg Lorazepam (Ativan) 1 mg IVP Q6H PRN PRN Reason: Anxiety Last Admin: 12/18/17 09:31 Dose: 1 mg Mirtazapine (Remeron) 30 mg PO HS [facility] Last Admin: 12/17/17 22:17 Dose: 30 mg Mirtazapine (Remeron) 15 mg PO HS [facility] Last Admin: 12/17/17 22:18 Dose: 15 mg Ondansetron HCl (Zofran Odt) 4 mg PO Q8H PRN PRN Reason: Nausea/Vomiting Last Admin: 12/17/17 18:38 Dose: 4 mg Rosuvastatin Calcium (Crestor) 10 mg PO HS [facility] Last Admin: 12/17/17 22:17 Dose: 10 mg Venlafaxine HCl (Effexor) 75 mg PO DAILY [facility] Last Admin: 12/18/17 09:26 Dose: 75 mg Zolpidem Tartrate (Ambien) 5 mg PO HS [facility] Last Admin: 12/17/17 22:18 Dose: 5 mg - Labs Labs: 12/18/17 13:55 12/18/17 13:55 PT 10.9 SECONDS (9.7-12.2) 03/22/18 14:11 INR 1.0 12/14/17 14:11 APTT 32 SECONDS (21-34) 12/14/17 14:11 - Head Exam Head Exam: NORMAL INSPECTION - Eye Exam Eye Exam: Normal appearance - ENT Exam ENT Exam: Mucous Membranes Moist - Respiratory Exam Respiratory Exam: Clear to Ausculation Bilateral - Cardiovascular Exam Cardiovascular Exam: REGULAR RHYTHM - GI/Abdominal Exam GI & Abdominal Exam: Soft - Neurological Exam Neurological Exam: Alert Assessment and Plan - Assessment and Plan (Free Text) Assessment: Chest pain Hypertension Major depression Anxiety Insomnia Hyperlipidemia Patient needs to be evaluated for psych for admission Continue Remeron Hydrochlorothiazide Norvasc Ambien nightly as needed Ativan DVT/GI prophylaxis Discharge planning
[2017-12-19 03:02] VITALS: RESP 20
--- NOTE | 2017-12-19 15:54 | PN ---
DATE: SUBJECTIVE: The patient is seen. The patient is feeling a little better, but still feeling depressed. No chest pain reported. The patient's sleeping is also getting a little better. The patient is currently on Ambien 5 mg at bedtime, Effexor 75 mg daily, Remeron 45 mg at bedtime. PHYSICAL EXAMINATION VITAL SIGNS: Temperature is 97.6, pulse rate is 63, blood pressure is 118/60, respirations 20, oxygen saturation is 97%. REVIEW OF SYSTEMS: GENERAL: The patient is alert, verbal, still depressed, but feeling a little bit better. Change in her room. SKIN: No diaphoresis. HEENT: No headache, no dizziness. NECK: Supple. RESPIRATORY: No dyspnea. CARDIOVASCULAR: No chest pain. GASTROINTESTINAL: Appetite is poor, but improving a little bit. No nausea, no vomiting. EXTREMITIES: The patient is moving extremities. MUSCULOSKELETAL: Feels weak. NEUROLOGIC: Alert and oriented x3. GENITOURINARY: No dysuria. The patient does not want subacute rehab and wants to go home once she feels better. MENTAL STATUS EXAMINATION: Elderly female who looks her stated age, alert and oriented x3. Mood is less depressed, was adequate, anxious. Affect is reactive. Speech is spontaneous. Thought process, coherent. Thought content, no overt psychosis. No suicidal or homicidal ideation. Attention and memory seem to be fair. Insight and judgment are fair. Impulse control is fair. IMPRESSION: History of recurrent depression, anxiety, chest pain. PLAN AND RECOMMENDATIONS: The patient was seen, meds reviewed. Continue present psych meds. If the patient will remain stable and if blood pressure will not fluctuate especially with high dose of Remeron, then the patient can be discharged to home in the morning. Will follow up in my office in one week. We will continue her Ambien 5 mg at bedtime as well as the Effexor. The patient seems to be doing better, but needs to be monitored for fluctuation of her blood pressure, especially when she is on high dose of Remeron 45 mg at bedtime. Skinny Lozano MD
--- NOTE | 2017-12-19 19:10 | CP.PCM.PN ---
Subjective - Date & Time of Evaluation Date of Evaluation: 12/19/17 Time of Evaluation: 19:10 - Subjective Subjective: Patient seen and examined No events overnight Objective - Vital Signs/Intake and Output Vital Signs (last 24 hours): Temp Pulse Resp BP Pulse Ox 98.0 F 107 H 20 124/80 98 12/19/17 15:02 12/19/17 15:02 12/19/17 15:02 12/19/17 15:02 12/19/17 15:02 Intake and Output: 12/19/17 12/20/17 18:59 06:59 Intake Total 300 Balance 300 - Medications Medications: Current Medications Amlodipine Besylate (Norvasc) 10 mg PO DAILY [facility] Last Admin: 12/19/17 09:43 Dose: 10 mg Aspirin (Aspirin Chewable) 81 mg PO DAILY [facility] Last Admin: 12/19/17 09:43 Dose: 81 mg Hydrochlorothiazide (Hydrodiuril) 25 mg PO DAILY [facility] Last Admin: 12/19/17 09:43 Dose: 25 mg Lisinopril (Zestril) 40 mg PO DAILY [facility] Last Admin: 12/19/17 09:45 Dose: 40 mg Lorazepam (Ativan) 1 mg IVP Q6H PRN PRN Reason: Anxiety Last Admin: 12/19/17 10:18 Dose: 1 mg Mirtazapine (Remeron) 30 mg PO HS [facility] Last Admin: 12/18/17 21:47 Dose: 30 mg Mirtazapine (Remeron) 15 mg PO HS [facility] Last Admin: 12/18/17 21:47 Dose: 15 mg Ondansetron HCl (Zofran Odt) 4 mg PO Q8H PRN PRN Reason: Nausea/Vomiting Last Admin: 12/19/17 09:42 Dose: 4 mg Rosuvastatin Calcium (Crestor) 10 mg PO HS [facility] Last Admin: 12/18/17 21:47 Dose: 10 mg Venlafaxine HCl (Effexor) 75 mg PO DAILY [facility] Last Admin: 12/19/17 09:44 Dose: 75 mg Zolpidem Tartrate (Ambien) 5 mg PO HS [facility] Last Admin: 12/18/17 21:47 Dose: 5 mg - Labs Labs: 12/18/17 13:55 12/18/17 13:55 PT 10.9 SECONDS (9.7-12.2) 12/14/17 14:11 INR 1.0 12/14/17 14:11 APTT 32 SECONDS (21-34) 12/14/17 14:11 - Head Exam Head Exam: NORMAL INSPECTION - Eye Exam Eye Exam: Normal appearance - ENT Exam ENT Exam: Mucous Membranes Moist - Respiratory Exam Respiratory Exam: Clear to Ausculation Bilateral - Cardiovascular Exam Cardiovascular Exam: REGULAR RHYTHM - Neurological Exam Neurological Exam: Alert, Oriented x3 Assessment and Plan - Assessment and Plan (Free Text) Assessment: Chest pain Hypertension Major depression Anxiety Insomnia Hyperlipidemia Patient needs to be evaluated for psych for admission Continue Remeron Hydrochlorothiazide Norvasc Ambien nightly as needed Ativan DVT/GI prophylaxis
[2017-12-20 07:54] VITALS: BP 116/66; PULSE 80; TEMP 98.3; O2SAT 96
--- NOTE | 2017-12-20 12:42 | CP.PCM.PN ---
Subjective - Date & Time of Evaluation Date of Evaluation: 12/20/17 Time of Evaluation: 12:35 - Subjective Subjective: PT SEEN AND CLEARED BY DR. MOLINA FOR D/C HOME. PER DR. PORTER OK TO D/C HOME WELL. PT INSTRUCTED TO SEE DR. MOLINA IN THE OFFICE NEXT WEEK AND SHE WILL SEE HER PMD, DR. GORE, NEXT WEEK WELL. PT VERBALIZES UNDERSTANDING OF THE IMPORTANCE OF MONITORING HER BP OUTPATIENT WHILE ON REMERON. REFILL RX SENT TO PT'S PHARMACY AND NEW RX FOR REMERON GIVEN TO PT. SHE WILL HAVE FAMILY PICK HER UP THIS AFTERNOON. NO FURTHER ORDERS. D/C PLAN: -FOLLOW UP WITH DR. PORTER OR YOUR PRIMARY DOCTOR IN THE OFFICE WITHIN 5-7 DAYS OF DISCHARGE--CALL THE OFFICE FOR APPT TIME. -FOLLOW UP WITH DR. MOLINA IN THE OFFICE WITHIN 7 DAYS OF DISCHARGE--CALL THE OFFICE FOR APPT TIME. -YOU HAVE BEEN REFILLED YOUR USUAL HOME MEDICATIONS. -NEW PRESCRIPTION PER DR. MOLINA IS: 1) REMERON 45 MG PO AT BEDTIME. -FOR FURTHER ORDERS OR CONCERNS, FEEL FREE TO CALL THE OFFICES OF DR. PORTER OR DR. MOLINA. Objective - Vital Signs/Intake and Output Vital Signs (last 24 hours): Temp Pulse Resp BP Pulse Ox 98.3 F 80 20 116/66 96 12/20/17 07:00 12/20/17 07:00 12/20/17 07:00 12/20/17 07:00 12/20/17 07:00 Intake and Output: 12/20/17 12/20/17 06:59 18:59 Intake Total 120 Balance 120 - Medications Medications: Current Medications Amlodipine Besylate (Norvasc) 10 mg PO DAILY [facility] Last Admin: 12/20/17 09:37 Dose: 10 mg Aspirin (Aspirin Chewable) 81 mg PO DAILY [facility] Last Admin: 12/20/17 09:37 Dose: 81 mg Hydrochlorothiazide (Hydrodiuril) 25 mg PO DAILY [facility] Last Admin: 12/20/17 09:37 Dose: 25 mg Lisinopril (Zestril) 40 mg PO DAILY [facility] Last Admin: 12/20/17 09:43 Dose: 40 mg Lorazepam (Ativan) 1 mg IVP Q6H PRN PRN Reason: Anxiety Last Admin: 12/20/17 12:22 Dose: 1 mg Mirtazapine (Remeron) 30 mg PO HS [facility] Last Admin: 12/19/17 21:36 Dose: 30 mg Mirtazapine (Remeron) 15 mg PO HS [facility] Last Admin: 12/19/17 21:36 Dose: 15 mg Ondansetron HCl (Zofran Odt) 4 mg PO Q8H PRN PRN Reason: Nausea/Vomiting Last Admin: 12/19/17 09:42 Dose: 4 mg Rosuvastatin Calcium (Crestor) 10 mg PO HS [facility] Last Admin: 12/19/17 21:36 Dose: 10 mg Venlafaxine HCl (Effexor) 75 mg PO DAILY [facility] Last Admin: 12/20/17 09:37 Dose: 75 mg Zolpidem Tartrate (Ambien) 5 mg PO HS [facility] Last Admin: 12/19/17 21:38 Dose: 5 mg - Labs Labs: 12/18/17 13:55 12/18/17 13:55 PT 10.9 SECONDS (9.7-12.2) 12/14/17 14:11 INR 1.0 12/14/17 14:11 APTT 32 SECONDS (21-34) 12/14/17 14:11
--- NOTE | 2017-12-20 16:29 | PN ---
DATE: SUBJECTIVE: The patient is seen. She is feeling better. She will be discharged today. The patient to follow up in my office in one week. The patient will be discharged on Ambien, Effexor, and Remeron. She is tolerating her meds without drop in her blood pressure. The patient states that she will try to follow up with [facility] in the application for Medicaid of her , so can be placed in the half-way. She wants her to go to [facility] where she worked before for many years. PHYSICAL EXAMINATION VITAL SIGNS: Temperature is 98.3, pulse 80, blood pressure 116/66, respirations 20, oxygen saturation 96%. REVIEW OF SYSTEMS: GENERAL: The patient is alert and oriented x3, less depressed, in her room. The patient is for discharge today. SKIN: No diaphoresis. HEENT: No headache. No dizziness. NECK: Supple. RESPIRATORY: No dyspnea. CARDIOVASCULAR: No chest pain. GASTROINTESTINAL: She is eating better. No nausea, no vomiting. EXTREMITIES: Gait is improving. MUSCULOSKELETAL: Improving. NEUROLOGIC: Alert and oriented x3. GENITOURINARY: No urinary problems or dysuria. MENTAL STATUS EXAMINATION: Elderly female, who looks stated age, alert and oriented x3. Mood is a little brighter, less depressed, less somatic. She says sleep is still a problem with her, but sleeping much better. The patient is willing to be discharged to home. Thought process, coherent. Affect is reactive. Speech is spontaneous. Thought content, the patient has no psychosis. No suicidal or homicidal ideation. Attention and memory seems to be fair. Insight and judgment fair. Impulse control is fair. IMPRESSION: History of anxiety disorder, as well as history of recurrent depression, chest pain. PLAN AND RECOMMENDATIONS: The patient was seen, meds reviewed. Psych-guzman, the patient is stable for discharge to home today. Follow up in my office in one week. The patient to continue present psych meds as ordered. The patient also to follow up for her PMD for her non-psych issues. Skinny Lozano MD [facility]
--- NOTE | 2017-12-21 19:04 | CP.PCM.DIS ---
Provider - Provider Date of Admission: 12/17/17 13:44 Attending physician: Xiomy Porter MD Time Spent in preparation of Discharge (in minutes): 25 Diagnosis - Discharge Diagnosis (1) Chest pain Status: Acute (2) HTN (hypertension) Status: Chronic Priority: Medium (3) Hyperlipidemia Status: Chronic Priority: Medium (4) Insomnia Status: Chronic Priority: Medium (5) Major depressive disorder Status: Chronic Hospital Course - Lab Results Lab Results: Most Recent Lab Values WBC 4.1 K/uL (4.8-10.8) L 12/18/17 13:55 RBC 4.19 Mil/uL (3.80-5.20) 12/18/17 13:55 Hgb 12.5 g/dL (11.0-16.0) 12/18/17 13:55 Hct 38.0 % (34.0-47.0) 12/18/17 13:55 MCV 90.7 fL (81.0-99.0) 12/18/17 13:55 MCH 29.8 pg (27.0-31.0) 12/18/17 13:55 MCHC 32.8 g/dL (33.0-37.0) L 12/18/17 13:55 RDW 13.8 % (11.5-14.5) 12/18/17 13:55 Plt Count 224 K/uL (130-400) 12/18/17 13:55 MPV 9.0 fL (7.2-11.7) 12/18/17 13:55 Neut % (Auto) 56.4 % (50.0-75.0) 12/18/17 13:55 Lymph % (Auto) 30.5 % (20.0-40.0) 12/18/17 13:55 [place] % (Auto) 10.9 % (0.0-10.0) H 12/18/17 13:55 Eos % (Auto) 1.4 % (0.0-4.0) 12/18/17 13:55 Baso % (Auto) 0.8 % (0.0-2.0) 12/18/17 13:55 Neut # (Auto) 2.3 K/uL (1.8-7.0) 12/18/17 13:55 Lymph # (Auto) 1.2 K/uL (1.0-4.3) 12/18/17 13:55 [place] # (Auto) 0.4 K/uL (0.0-0.8) 12/18/17 13:55 Eos # (Auto) 0.1 K/uL (0.0-0.7) 12/18/17 13:55 Baso # (Auto) 0.0 K/uL (0.0-0.2) 12/18/17 13:55 PT 10.9 SECONDS (9.7-12.2) 12/14/17 14:11 INR 1.0 12/14/17 14:11 APTT 32 SECONDS (21-34) 12/14/17 14:11 Sodium 135 mmol/L (132-148) 12/18/17 13:55 Potassium 4.3 mmol/L (3.6-5.2) 12/18/17 13:55 Chloride 99 mmol/L (98-107) 12/18/17 13:55 Carbon Dioxide 25 mmol/L (22-30) 12/18/17 13:55 Anion Gap 15 (10-20) 12/18/17 13:55 BUN 18 mg/dL (7-17) H 12/18/17 13:55 Creatinine 1.4 mg/dL (0.7-1.2) H 12/18/17 13:55 Est GFR ( Amer) 45 12/18/17 13:55 Est GFR (Non-Af Amer) 37 12/18/17 13:55 Random Glucose 95 mg/dL (65-105) 12/18/17 13:55 Calcium 8.6 mg/dl (8.6-10.4) 12/18/17 13:55 Total Bilirubin 0.7 mg/dL (0.2-1.3) 12/14/17 14:11 AST 22 U/L (14-36) 12/14/17 14:11 ALT 16 U/L (9-52) 12/14/17 14:11 Alkaline Phosphatase 88 U/L (38-126) 12/14/17 14:11 Total Creatine Kinase 47 U/L (30-135) 12/15/17 01:00 CK-MB (Mass) 0.29 ng/mL (0.0-3.38) 12/15/17 01:00 Troponin I < 0.0120 ng/mL (0.00-0.120) 12/15/17 01:00 Total Protein 7.8 g/dL (6.3-8.3) 12/14/17 14:11 Albumin 4.4 g/dL (3.5-5.0) 12/14/17 14:11 Globulin 3.4 gm/dL (2.2-3.9) 12/14/17 14:11 Albumin/Globulin Ratio 1.3 (1.0-2.1) 12/14/17 14:11 - Hospital Course Hospital Course: Patient was ruled out for cardiac causes of chest pain Psych evaluation was done for major depression and patient's medications were adjusted during this hospitalization. Patient was evaluated for in-house psych floor admission but patient refused. Patient was discharged home once cleared by psychiatry Discharge Exam - Head Exam Head Exam: ATRAUMATIC - Eye Exam Eye Exam: Normal appearance - Respiratory Exam Respiratory Exam: NORMAL BREATHING PATTERN - Cardiovascular Exam Cardiovascular Exam: REGULAR RHYTHM - GI/Abdominal Exam GI & Abdominal Exam: Normal Bowel Sounds - Neurological Exam Neurological exam: Alert, Normal Gait, Oriented x3 Discharge Plan - Discharge Medications Prescriptions: Zolpidem [Ambien] 5 mg PO HS #30 tab Aspirin [Aspirin Chewable] 81 mg PO DAILY #30 chew Venlafaxine [Effexor XR] 75 mg PO DAILY #30 cer hydroCHLOROthiazide [Hydrodiuril] 25 mg PO DAILY #30 tab amLODIPine [Norvasc] 10 mg PO DAILY #30 tab Mirtazapine [Remeron] 45 mg PO HS #30 tablet Simvastatin 5 mg PO DAILY #30 tablet Lisinopril [Zestril] 40 mg PO DAILY #30 tab Ondansetron ODT [Zofran ODT] 4 mg PO Q8H PRN #21 odt PRN Reason: Nausea/Vomiting - Follow Up Plan Condition: FAIR Disposition: HOME/ ROUTINE Instructions: Heart Healthy Diet, Chest Pain Additional Instructions: -FOLLOW UP WITH DR. PORTER OR YOUR PRIMARY DOCTOR IN THE OFFICE WITHIN 5-7 DAYS OF DISCHARGE--CALL THE OFFICE FOR APPT TIME. -FOLLOW UP WITH DR. MOLINA IN THE OFFICE WITHIN 7 DAYS OF DISCHARGE--CALL THE OFFICE FOR APPT TIME. -YOU HAVE BEEN REFILLED YOUR USUAL HOME MEDICATIONS. -NEW PRESCRIPTION PER DR. MOLINA IS: 1) REMERON 45 MG PO AT BEDTIME. -FOR FURTHER ORDERS OR CONCERNS, FEEL FREE TO CALL THE OFFICES OF DR. PORTER OR DR. MOLINA. Referrals: Xiomy Porter MD [Staff Provider] - Skinny Leal MD [Staff Provider] -
== END 2017-12-20 16:07 | disposition home or self-care (01) | DRG 885 ==
LOC: C.ER 13:24 → C.9E 15:53 → C.6T 17:01 → OBSVTOIN 12-17 13:44
PROVIDERS: ADMIT Internal Medicine Critical Care Medicine; ATTEND Internal Medicine Critical Care Medicine
DX: F33.9 Major depressive disorder, recurrent, unspecified (principal); F41.9 Anxiety disorder, unspecified; R07.9 Chest pain, unspecified; K21.9 Gastro-esophageal reflux disease without esophagitis; I10 Essential (primary) hypertension; M06.9 Rheumatoid arthritis, unspecified; E78.00 Pure hypercholesterolemia, unspecified; E03.9 Hypothyroidism, unspecified; D64.9 Anemia, unspecified; E11.9 Type 2 diabetes mellitus without complications; Z91.81 History of falling; Z79.899 Other long term (current) drug therapy; Z86.73 Personal history of transient ischemic attack (TIA), and cerebral infarction without residual deficits; E78.5 Hyperlipidemia, unspecified; G47.00 Insomnia, unspecified